=== PATIENT | female | born 1960 | race Caucasian/White ===

== ENCOUNTER 2017-04-03 17:40 | Emergency (ER) | payer MEDICAID, OTHER ==
[~2017-04-03] VITALS: Ht 149.9 cm; Wt 85.3 kg
[2017-04-03 17:40] VITALS: BP 132/86
--- NOTE | 2017-04-03 18:14 | NUR ---
PT REQUESTS BREATHING TX; MD NOTIFIED AND VERBAL ORDER RECEIVED. RT NOTIFIED.
[2017-04-03] MEDS ORDERED: ALBUTEROL FS 2.5 MG/3 ML VIAL.NEB ONE (18:24)
[2017-04-03] MEDS ORDERED: IPRATROPIUM NEB FS 0.5 MG/2.5 ML AMPUL.NEB ONE (18:24)
[2017-04-03] MEDS ORDERED: ALBUTEROL FS 2.5 MG/3 ML VIAL.NEB NEB ONE (18:30)
[2017-04-03] MEDS ORDERED: IPRATROPIUM NEB FS 0.5 MG/2.5 ML AMPUL.NEB NEB ONE (18:30)
--- NOTE | 2017-04-03 19:13 | NUR ---
RECEIVED REPORT FROM MILLICENT RODRIGUEZ FOR [facility].
--- NOTE | 2017-04-03 19:32 | NUR ---
Patient discharged to home in stable condition. Written and verbal after care instructions given. Patient verbalizes understanding of instruction. Pt ambulatory with a steady gait.
== END 2017-04-03 19:33 | disposition home or self-care (01) ==
LOC: ER 17:47
DX: J45.901 Unspecified asthma with (acute) exacerbation (principal); Z88.1 Allergy status to other antibiotic agents
CPT/HCPCS: 94640 ×2; 99284; A4606; Z7610